=== PATIENT | male | born 1960 | race Caucasian/White ===

== ENCOUNTER 2019-02-28 04:38 | Inpatient (IN) | payer BC ==
[2019-02-28] VITALS (16 sets, daily range): BP systolic 92–173; BP diastolic 60–81
[~2019-02-28] VITALS: Ht 175.3 cm; Wt 115.3 kg
[~2019-02-28 04:38] MED LIST: ASP81TEC PO; CHOL200035 PO; SIMV20TA3 PO; SIMV80TA3 PO
--- OUTSIDE RECORDS SUMMARY | 2019-02-28 04:46 | XMS REPORT | Continuity of Care Document ---
Author Author [facility] Organization [facility] Address Unknown Phone Unavailable Support Name Relationship Address Phone RAUL HDZ Next Of Kin [address] [place], [place] [id number] Insurance Providers Payer Name Policy Number Subscriber Name Relationship Rust [id number] Minerva Gupta 01 Self / Same As Patient Advance Directives Directive Response Recorded Date Advance Directives Y 05/08/13 8:36am Organ Donor N 05/08/13 8:36am Problems No Known Problems or Medical conditions. Allergies, Adverse Reactions, Alerts Allergen Type Severity Reaction Last Updated Erythromycin Base Allergy Mild 05/08/13 GENERAL ANESTHETIC AGENT?? Adverse Reaction Mild 05/08/13 Medications Medication Dose Units Route Sig Qty Days Simvastatin 80 Mg PO DAILY Aspirin (Aspirin Ec 81 Mg) 81 Mg PO DAILY Cholecalciferol (Vitamin D3) (Vitamin D3) 2000 Unit PO DAILY Response Recorded Date/Time Status not known Unknown Results No Known Relevant Diagnostic Tests, Laboratory Data and/or Discharge Summary.
--- OUTSIDE RECORDS SUMMARY | 2019-02-28 04:46 | XMS REPORT | Continuity of Care Document ---
Author Organization Unknown Address Unknown Allergies Active Description Code Type Severity Reaction Onset Reported/Identified Relationship to Patient Clinical Status Yes erythromycin base [id number] Drug Allergy Mild N/A 05/08/2013 Yes GENERAL ANESTHETIC AGENT?? GENERAL ANESTHETIC AGENT?? Mild N/A 05/08/2013 Medications There is no data. Problems Date Dx Coded Attending Type Code Diagnosis Diagnosed By 05/13/2016 MAEVE GUSMAN MD Ot T15.91XA FOREIGN BODY ON EXTERNAL EYE, PART UNSP, 05/13/2016 MAEVE GUSMAN MD Ot Y92.[address] IN SINGLE-FAMILY (PRIVATE) DANDY 05/15/2016 MAEVE GUSMAN MD Ot T15.91XA FOREIGN BODY ON EXTERNAL EYE, PART UNSP, 05/15/2016 MAEVE GUSMAN MD Ot Y92.[address] IN SINGLE-FAMILY (PRIVATE) DANDY 05/15/2016 MAEVE GUSMAN MD Ot Y99.0 CIVILIAN ACTIVITY DONE FOR INCOME OR PAY 05/15/2016 MAEVE GUSMAN MD Ot T15.91XA FOREIGN BODY ON EXTERNAL EYE, PART UNSP, 05/15/2016 MAEVE GUSMAN MD Ot Y92.[address] IN SINGLE-FAMILY (PRIVATE) DANDY Procedures There is no data. Results There is no data. Encounters ACCT No. Visit Date/Time Discharge Status Pt. Type Provider Facility Loc./Unit Complaint [id number] 05/13/2016 13:34:00 05/13/2016 15:14:00 DIS Emergency MAEVE GUSMAN MD [facility] ER R EYE CHEMICAL EXPOSURE [id number] 09/09/2014 19:06:00 09/09/2014 23:59:59 CLS Outpatient COLTHARP TAYLER HALL [facility] QUICK [id number] 05/08/2013 07:52:00 05/08/2013 10:50:00 DIS Outpatient [id number] 05/06/2013 07:36:00 05/06/2013 23:59:59 [facility] Outpatient [email or web address] 09/18/2014 08:28:58 ACT Document Registration
[2019-02-28] MEDS ORDERED: NS IV 1000 ML 1,000 ML IV ONE (04:52)
[2019-02-28] MEDS ORDERED: PIPERACILLIN/TAZOBACTAM (BULK) 4.5 GM in NS (IVPB) 100 ML IV ONE (05:00)
[2019-02-28 05:11] LABS: BASOPHILS % (AUTO) 0 % (0-10); EOSINOPHILS % (AUTO) 0 % (0-10); HEMATOCRIT 44 % (40-54); HEMOGLOBIN 14.8 G/DL (13.3-17.7); LYMPHOCYTES # (AUTO) 0.9 X 10^3 (1.0-4.0); LYMPHOCYTES % (AUTO) 5 % (12-44); MEAN CORPUSCULAR HEMOGLOBIN 31 PG (25-34); MEAN CORPUSCULAR HGB CONC 34 G/DL (32-36); MEAN CORPUSCULAR VOLUME 91 FL (80-99); MONOCYTES # (AUTO) 0.6 X 10^3 (0.0-1.0); MONOCYTES % (AUTO) 3 % (0-12); NEUTROPHILS # (AUTO) 16.8 X 10^3 (1.8-7.8); NEUTROPHILS % (AUTO) 91 % (42-75); PLATELET COUNT 213 10^3/uL (130-400); RED CELL DISTRIBUTION WIDTH 13.2 % (10.0-14.5); WHITE BLOOD COUNT 18.4 10^3/uL (4.3-11.0)
[2019-02-28 05:13] LABS: BILIRUBIN,URINE NEGATIVE (NEGATIVE); CLARITY,URINE SLIGHTLY CLOUDY; COLOR,URINE YELLOW; GLUCOSE, URINE (UA) NEGATIVE (NEGATIVE); KETONES,URINE 1+ (NEGATIVE); LEUKOCYTE ESTERASE ,URINE 3+ (NEGATIVE); NITRITE,URINE NEGATIVE (NEGATIVE); PH,URINE 6 (5-9); PROTEIN,URINE 3+ (NEGATIVE); UROBILINOGEN,URINE 4 MG/DL (NORMAL)
[2019-02-28] MEDS ORDERED: PIPERACILLIN SODIUM/TAZOBACTAM 4.5 GM in NS (IVPB) 100 ML IV ONE (05:15)
[2019-02-28 05:22] LABS: BACTERIA,URINE MODERATE /HPF; WBC,URINE TNTC /HPF
[2019-02-28 05:24] LABS: PROTHROMBIN TIME PATIENT 13.5 SEC (12.2-14.7)
[2019-02-28 05:30] LABS: ALANINE AMINOTRANSFERASE 21 U/L (0-55); ALBUMIN 3.9 GM/DL (3.2-4.5); ALKALINE PHOSPHATASE 77 U/L (40-136); BILIRUBIN,TOTAL 2.2 MG/DL (0.1-1.0); BUN/CREATININE RATIO 10; CALCIUM 9.6 MG/DL (8.5-10.1); CARBON DIOXIDE 20 MMOL/L (21-32); CHLORIDE 106 MMOL/L (98-107); CREATININE SERUM 0.98 MG/DL (0.60-1.30); GFR ESTIMATED > 60; GLUCOSE 116 MG/DL (70-105); POTASSIUM 3.8 MMOL/L (3.6-5.0); SODIUM 137 MMOL/L (135-145); TOTAL PROTEIN 6.6 GM/DL (6.4-8.2)
[2019-02-28] MEDS ORDERED: LACTATED RINGERS 1,000 ML IV ONE ×2 (05:59→06:37)
[2019-02-28 06:11] LABS: LYMPHOCYTES % (MANUAL) 6 %; MONOCYTES % (MANUAL) 5 %; NEUTROPHILS % (MANUAL) 89 %
--- NOTE | 2019-02-28 06:23 | Diagnostic Imaging Report ---
INDICATION: Fever and chills. No prior examinations are available for comparison. FINDINGS: The heart size, mediastinal configuration, and pulmonary vascularity are within normal limits. There is no pleural effusion, pneumothorax, or pneumonia. The osseous structures are unremarkable. IMPRESSION: No acute cardiopulmonary abnormality. Dictated by: Dictated on workstation # [id number]
[2019-02-28] MEDS ORDERED: ACETAMINOPHEN 500 MG TAB (TYLENOL) PO ONE (06:45)
--- NOTE | 2019-02-28 06:47 | ED General ---
General Chief Complaint: - Urinary Stated Complaint: POSS UTI Nursing Triage Note: FEVER/CHILLS, UNABLE TO EMPTY BLADDER Nursing Sepsis Screen: Possible Sepsis Risk Source of Information: Patient Exam Limitations: No Limitations History of Present Illness Date Seen by Provider: Feb 28, 2019 Time Seen by Provider: 04:41 Initial Comments This 59-year-old gentleman presents to the emergency room with illness starting on February 26 at around 22:00 when he developed chills. He was also noticing urinary frequency with a low volume voids. He questioned retention. He reports having had some difficulty urinating for about one to 2 weeks. He has been very busy at work and has not been getting up to urinate as often as he should. He is not presently treated for any prostate problems. He took ibuprofen at 23:00 and at 04:00. He presents febrile, tachycardic, and with systolic blood pressure of 89. Allergies and Home Medications Allergies Coded Allergies: erythromycin base (Unverified Allergy, Mild, 05/08/13) Uncoded Allergies: GENERAL ANESTHETIC AGENT?? (Adverse Reaction, Mild, 05/08/13) PT REPORTS WAS TOLD HE HAD A REACTION A CHILD DURING A T&A. NOT KNOWN WHAT REACTION WAS FROM. WAS TOLD IT WAS A GENERAL ANESTHETIC. Home Medications Aspirin 81 Mg Tabec, 81 MG PO DAILY, (Reported) Cholecalciferol (Vitamin D3) 2,000 Unit Capsule, 2,000 UNIT PO DAILY, (Reported) Simvastatin 80 Mg Tablet, 80 MG PO DAILY, (Reported) Patient Home Medication List Home Medication List Reviewed: Yes Review of Systems Review of Systems Constitutional: see HPI EENTM: no symptoms reported Cardiovascular: see HPI Gastrointestinal: no symptoms reported Genitourinary: see HPI Musculoskeletal: no symptoms reported Skin: no symptoms reported Psychiatric/Neurological: No Symptoms Reported Hematologic/Lymphatic: No Symptoms Reported Immunological/Allergic: no symptoms reported Past [id number] Hx Past Med/Social Hx: Reviewed and Corrections made Patient Social History Alcohol Use: Rarely Uses Recreational Drug Use: No Smoking Status: Never a Smoker 2nd Hand Smoke Exposure: No Recent Foreign Travel: No Contact w/Someone Who Travel: No Recent Infectious Disease Expo: No Recent Hopitalizations: No Physical Abuse: No Sexual Abuse: No Mistreated: No Fear: No Immunizations Up To Date Tetanus Booster (TDap): Unknown Seasonal Allergies Seasonal Allergies: Yes Past Medical History Surgeries: Yes Adenoidectomy, Orthopedic, Tonsillectomy Respiratory: No Cardiac: Yes High Cholesterol Neurological: No Reproductive Disorders: No Sexually Transmitted Disease: No HIV/AIDS: No Genitourinary: No Gastrointestinal: Yes Gastroesophageal Reflux Musculoskeletal: No Endocrine: No Loss of Vision: Denies Hearing Impairment: Denies Cancer: No Psychosocial: No Integumentary: No Blood Disorders: No Physical Exam-Suspected Sepsis Physical Exam Vital Signs Vital Signs - First Documented 02/28/19 02/28/19 04:46 05:29 Temp 102.7 Pulse 140 Resp 18 B/P (MAP) 89/64 (72) Pulse Ox 94 O2 Delivery Room Air O2 Flow Rate 2.00 Capillary Refill : Less Than 3 Seconds Blood Pressure Mean: 78 Height, Weight, BMI Height: 5'9.00" Weight: 245lbs. oz. 111.878430it; BMI Method:Stated General Appearance: No Apparent Distress, WD/WN HEENT: PERRL/EOMI, Normal ENT Inspection Neck: Normal Inspection, Supple Respiratory: Lungs Clear, Normal Breath Sounds, No Accessory Muscle Use, No Respiratory Distress Cardiovascular: No Edema, No Gallop, Tachycardia Gastrointestinal: Normal Bowel Sounds, Non Tender, Soft Extremity: Normal Capillary Refill, Normal Inspection, No Pedal Edema Neurologic/Psychiatric: Alert, Oriented x3, No Motor/Sensory Deficits, Normal Mood/Affect, head shipper II-XII Norm as Tested Skin: normal color, warm/dry Focused Exam Sepsis Stage: Sepsis Possible Source: Genitouriary Lactate Level 02/28/19 04:55: Lactic Acid Level 1.77 Time of Focused Exam: 06:40 Respiratory: Lungs Clear, Normal Breath Sounds, No Accessory Muscle Use Cardiovascular: Regular Rate, Rhythm, No Edema, No Murmur Capillary Refill: Less Than 3 Seconds Skin: normal color, warm/dry Lactic Acid Level Laboratory Tests Test 02/28/19 04:55 Lactic Acid Level 1.77 MMOL/L (0.50-2.00) Within 3hrs of presentation: Admin fluids, Admin 30ml/kg IBW due to BMI>30, Admin ABX, Blood cultures prior to ABX's, Focus exam, Lactate level Progress/Results/Core Measures Suspected Sepsis Recent Fever Within 48 Hours: Yes Infection Criteria Present: Suspected New Infection New/Unexplained Altered Menta: No Sepsis Screen: Possible Sepsis Risk SIRS Temperature:100.7 Pulse: 107 Respiratory Rate: 16 Laboratory Tests 02/28/19 04:55: White Blood Count 18.4H Blood Pressure 103 /66 Mean: 78 02/28/19 04:55: Lactic Acid Level 1.77 Laboratory Tests 02/28/19 04:55: Creatinine 0.98, INR Comment 1.0, Platelet Count 213, Total Bilirubin 2.2H Results/Orders Lab Results Laboratory Tests Test 02/28/19 04:55 Range/Units White Blood Count 18.4 H 4.3-11.0 10^3/uL Red Blood Count 4.82 4.35-5.85 10^6/uL Hemoglobin 14.8 13.3-17.7 G/DL Hematocrit 44 40-54 % Mean Corpuscular Volume 91 80-99 FL Mean Corpuscular Hemoglobin 31 25-34 PG Mean Corpuscular Hemoglobin Concent 34 32-36 G/DL Red Cell Distribution Width 13.2 10.0-14.5 % Platelet Count 213 130-400 10^3/uL Mean Platelet Volume 11.0 H 7.4-10.4 FL Neutrophils (%) (Auto) 91 H 42-75 % Lymphocytes (%) (Auto) 5 L 12-44 % Monocytes (%) (Auto) 3 0-12 % Eosinophils (%) (Auto) 0 0-10 % Basophils (%) (Auto) 0 0-10 % Neutrophils # (Auto) 16.8 H 1.8-7.8 X 10^3 Lymphocytes # (Auto) 0.9 L 1.0-4.0 X 10^3 Monocytes # (Auto) 0.6 0.0-1.0 X 10^3 Eosinophils # (Auto) 0.0 0.0-0.3 10^3/uL Basophils # (Auto) 0.0 0.0-0.1 10^3/uL Neutrophils % (Manual) 89 % Lymphocytes % (Manual) 6 % Monocytes % (Manual) 5 % Prothrombin Time 13.5 12.2-14.7 SEC INR Comment 1.0 0.8-1.4 Activated Partial Thromboplast Time 31 24-35 SEC Urine Color YELLOW Urine Clarity SLIGHTLY CLOUDY Urine pH 6 5-9 Urine Specific Varnell 1.020 1.016-1.022 Urine Protein 3+ H NEGATIVE Urine Glucose (UA) NEGATIVE NEGATIVE Urine Ketones 1+ H NEGATIVE Urine Nitrite NEGATIVE NEGATIVE Urine Bilirubin NEGATIVE NEGATIVE Urine Urobilinogen 4 H NORMAL MG/DL Urine Leukocyte Esterase 3+ H NEGATIVE Urine RBC (Auto) 5+ H NEGATIVE Urine RBC 5-10 H /HPF Urine WBC TNTC H /HPF Urine Crystals NONE /LPF Urine Bacteria MODERATE H /HPF Urine Casts NONE /LPF Urine Mucus NEGATIVE /LPF Urine Culture Indicated CULTURE PENDING Sodium Level 137 135-145 MMOL/L Potassium Level 3.8 3.6-5.0 MMOL/L Chloride Level 106 98-107 MMOL/L Carbon Dioxide Level 20 L 21-32 MMOL/L Anion Gap 11 5-14 MMOL/L Blood Urea Nitrogen 10 7-18 MG/DL Creatinine 0.98 0.60-1.30 MG/DL Estimat Glomerular Filtration Rate > 60 BUN/Creatinine Ratio 10 Glucose Level 116 H 70-105 MG/DL Lactic Acid Level 1.77 0.50-2.00 MMOL/L Calcium Level 9.6 8.5-10.1 MG/DL Corrected Calcium 9.7 8.5-10.1 MG/DL Total Bilirubin 2.2 H 0.1-1.0 MG/DL Aspartate Amino Transf (AST/SGOT) 16 5-34 U/L Alanine Aminotransferase (ALT/SGPT) 21 0-55 U/L Alkaline Phosphatase 77 40-136 U/L Total Protein 6.6 6.4-8.2 GM/DL Albumin 3.9 3.2-4.5 GM/DL My Orders Orders - GLORIA LOZANO MD Cbc With Automated Diff (02/28/19 04:52) Comprehensive Metabolic Panel (02/28/19 04:52) Blood Culture (02/28/19 04:52) Sputum Culture (02/28/19 04:52) Urinalysis (02/28/19 04:52) Urine Culture (02/28/19 04:52) Protime With Inr (02/28/19 04:52) Partial Thromboplastin Time (02/28/19 04:52) Chest 1 View, Ap/Pa Only (02/28/19 04:52) Ed Iv/Invasive Line Start (02/28/19 04:52) Ed Iv/Invasive Line Start (02/28/19 04:52) Vital Signs Adult Sepsis Patie Q15M (02/28/19 04:52) O2 (02/28/19 04:52) Remove Rings In Anticipation O (02/28/19 04:52) Lactic Acid Analyzer (02/28/19 04:52) Ns Iv 1000 Ml (Sodium Chloride 0.9%) (02/28/19 04:52) Piperacillin/Tazobactam (Bulk) (Zosyn In (02/28/19 05:00) Piperacillin Sodium/Tazobactam (Zosyn Vi (02/28/19 05:15) Manual Differential (02/28/19 04:55) Bladder Scan (02/28/19 05:22) Lactated Ringers (Lr 1000 Ml Iv Solution (02/28/19 05:59) Acetaminophen Tablet (Tylenol Tablet) (02/28/19 06:45) Lactated Ringers (Lr 1000 Ml Iv Solution (02/28/19 06:37) Medications Given in ED Current Medications Medications Dose Ordered Sig/Nguyen Route Start Time Stop Time Status Last Admin Dose Admin Acetaminophen 1,000 mg ONCE ONCE PO 02/28/19 06:45 02/28/19 06:46 DC 02/28/19 06:45 1,000 MG Lactated Ringer's 1,000 ml @ 0 mls/hr Q0M ONCE IV 02/28/19 05:59 02/28/19 06:00 DC 02/28/19 06:05 0 MLS/HR Lactated Ringer's 1,000 ml @ 0 mls/hr Q0M ONCE IV 02/28/19 06:37 02/28/19 06:38 DC 02/28/19 06:45 0 MLS/HR Piperacillin Sod/ Tazobactam Sod 4.5 gm/Sodium Chloride 100 ml @ 200 mls/hr ONCE ONCE IV 02/28/19 05:15 02/28/19 05:44 DC 02/28/19 05:14 200 MLS/HR Sodium Chloride 1,000 ml @ 0 mls/hr Q0M ONCE IV 02/28/19 04:52 02/28/19 04:54 DC 02/28/19 05:14 0 MLS/HR Vital Signs/I&O 02/28/19 02/28/19 02/28/19 02/28/19 04:46 05:29 05:57 06:45 Temp 102.7 100.7 100.7 Pulse 140 107 Resp 18 16 B/P (MAP) 89/64 (72) 103/66 Pulse Ox 94 96 O2 Delivery Room Air Nasal Cannula Nasal Cannula O2 Flow Rate 2.00 2.00 Capillary Refill : Less Than 3 Seconds Blood Pressure Mean: 78 Progress Note : Progress Note Septic workup was pursued. Patient received 3 L of IV fluid. This exceeds the 30 ML per kilogram of ideal body weight that would be necessary if this patient developed severe sepsis or septic shock. Because he had borderline blood pressures, the severe sepsis protocol was used. Zosyn was given as the initial antibiotic. Case was discussed with Dr. Shepard. Tylenol was given for fever. Bladder scan was performed due to patient's feelings of retention. Only about 15 mL of post void urine remained in the bladder. Departure Communication (Admissions) Time/Spoke to Admitting Phy: 06:20 Dr. Shepard Impression Primary Impression: Sepsis Qualified Codes: A41.9 - Sepsis, unspecified organism Additional Impression: Urinary tract infection Qualified Codes: N39.0 - Urinary tract infection, site not specified Disposition: ADMITTED INPATIENT Condition: Improved Admissions Decision to Admit Reason: Admit from ER (General) Decision to Admit/Date: Feb 28, 2019 Time/Decision to Admit Time: 04:45 Departure-Patient Inst. Referrals: XIMENA CHRIS MD (PCP/Family) Primary Care Physician GLORIA LOZANO MD Feb 28, 2019 06:47
--- OUTSIDE RECORDS SUMMARY | 2019-02-28 07:22 | XMS REPORT | Continuity of Care Document ---
Author Organization Unknown Address Unknown Allergies Active Description Code Type Severity Reaction Onset Reported/Identified Relationship to Patient Clinical Status Yes erythromycin base [id number] Drug Allergy Mild N/A 05/08/2013 Yes GENERAL [...] DANDY Procedures There is no data. Results Test Result Range Complete blood count (CBC) with automated white blood cell (WBC) differential - 02/28/19 04:55 Blood leukocytes automated count (number/volume) 18.4 10*3/uL 4.3-11.0 Blood erythrocytes automated count (number/volume) 4.82 10*6/uL 4.35-5.85 Venous blood hemoglobin measurement (mass/volume) 14.8 g/dL 13.3-17.7 Blood hematocrit (volume fraction) 44 % 40-54 Automated erythrocyte mean corpuscular volume 91 [foz_us] 80-99 Automated erythrocyte mean corpuscular hemoglobin (mass per erythrocyte) 31 pg 25-34 Automated erythrocyte mean corpuscular hemoglobin concentration measurement (mass/volume) 34 g/dL 32-36 Automated erythrocyte distribution width ratio 13.2 % 10.0- 14.5 Automated blood platelet count (count/volume) 213 10*3/uL 130-400 Automated blood platelet mean volume measurement 11.0 [foz_us] 7.4-10.4 Automated blood neutrophils/100 leukocytes 91 % 42-75 Automated blood lymphocytes/100 leukocytes 5 % 12-44 Blood monocytes/100 leukocytes 3 % 0-12 Automated blood eosinophils/100 leukocytes 0 % 0-10 Automated blood basophils/100 leukocytes 0 % 0-10 Blood neutrophils automated count (number/volume) 16.8 10*3 1.8-7.8 Blood lymphocytes automated count (number/volume) 0.9 10*3 1.0-4.0 Blood monocytes automated count (number/volume) 0.6 10*3 0.0- 1.0 Automated eosinophil count 0.0 10*3/uL 0.0-0.3 Automated blood basophil count (count/volume) 0.0 10*3/uL 0.0-0.1 Complete urinalysis with reflex to culture - 02/28/19 04:55 Urine color determination YELLOW NRG Urine clarity determination SLIGHTLY CLOUDY NRG Urine pH measurement by test strip 6 5-9 Specific gravity of urine by test strip 1.020 1.016-1.022 Urine protein assay by test strip, semi-quantitative 3+ NEGATIVE Urine glucose detection by automated test strip NEGATIVE NEGATIVE Erythrocytes detection in urine sediment by light microscopy 5+ NEGATIVE Urine ketones detection by automated test strip 1+ NEGATIVE Urine nitrite detection by test strip NEGATIVE NEGATIVE Urine total bilirubin detection by test strip NEGATIVE NEGATIVE Urine urobilinogen measurement by automated test strip (mass/volume) 4 mg/dL NORMAL Urine leukocyte esterase detection by dipstick 3+ NEGATIVE Automated urine sediment erythrocyte count by microscopy (number/high power field) [HPF] NRG Automated urine sediment leukocyte count by microscopy (number/high power field) TNTC NRG Bacteria detection in urine sediment by light microscopy MODERATE NRG Crystals detection in urine sediment by light microscopy NONE NRG Casts detection in urine sediment by light microscopy NONE NRG Mucus detection in urine sediment by light microscopy NEGATIVE NRG Complete urinalysis with reflex to culture CULTURE PENDING NRG Blood lactic acid measurement (moles/volume) - 02/28/19 04:55 Blood lactic acid measurement (moles/volume) 1.77 mmol/L 0.50- 2.00 Comprehensive metabolic panel - 02/28/19 04:55 Serum or plasma sodium measurement (moles/volume) 137 mmol/L 135-145 Serum or plasma potassium measurement (moles/volume) 3.8 mmol/L 3.6-5.0 Serum or plasma chloride measurement (moles/volume) 106 mmol/L 98-107 Carbon dioxide 20 mmol/L 21-32 Serum or plasma anion gap determination (moles/volume) 11 mmol/L 5-14 Serum or plasma urea nitrogen measurement (mass/volume) 10 mg/dL 7-18 Serum or plasma creatinine measurement (mass/volume) 0.98 mg/dL 0.60-1.30 Serum or plasma urea nitrogen/creatinine mass ratio 10 NRG Serum or plasma creatinine measurement with calculation of estimated glomerular filtration rate > NRG Serum or plasma glucose measurement (mass/volume) 116 mg/dL 70-105 Serum or plasma calcium measurement (mass/volume) 9.6 mg/dL 8.5-10.1 Serum or plasma total bilirubin measurement (mass/volume) 2.2 mg/dL 0.1-1.0 Serum or plasma alkaline phosphatase measurement (enzymatic activity/volume) 77 U/L 40-136 Serum or plasma aspartate aminotransferase measurement (enzymatic activity/volume) 16 U/L 5-34 Serum or plasma alanine aminotransferase measurement (enzymatic activity/volume) 21 U/L 0-55 Serum or plasma protein measurement (mass/volume) 6.6 g/dL 6.4-8.2 Serum or plasma albumin measurement (mass/volume) 3.9 g/dL 3.2-4.5 CALCIUM CORRECTED 9.7 mg/dL 8.5-10.1 PT panel in platelet poor plasma by coagulation assay - 02/28/19 04:55 Prothrombin time (PT) in platelet poor plasma by coagulation assay 13.5 s 12.2-14.7 INR in platelet poor plasma or blood by coagulation assay 1.0 0.8-1.4 Activated partial thromboplastin time (aPTT) in platelet poor plasma bycoagulation assay - 02/28/19 04:55 Activated partial thromboplastin time (aPTT) in platelet poor plasma bycoagulation assay 31 s 24-35 Manual absolute plasma cell count - 02/28/19 04:55 Blood monocytes/100 leukocytes 5 % NRG Manual blood segmented neutrophils/100 leukocytes 89 % NRG Manual blood lymphocytes/100 leukocytes 6 % NRG Encounters ACCT No. Visit Date/Time Discharge Status Pt. Type Provider Facility Loc./Unit Complaint [id number] 05/13/2016 13:34:00 05/13/2016 15:14:00 DIS Emergency MAEVE GUSMAN MD [facility] ER R EYE CHEMICAL EXPOSURE [id number] 09/09/2014 19:06:00 09/09/2014 23:59:59 CLS Outpatient TAYLER FOSTER DO [facility] QUICK [id number] 05/08/2013 07:52:00 05/08/2013 10:50:00 DIS Outpatient [id number] 05/06/2013 07:36:00 05/06/2013 23:59:59 CLS Outpatient [id number] 02/28/2019 05:15:00 Document Registration [id number] 09/18/2014 08:28:58 ACT Document Registration
--- NOTE | 2019-02-28 07:38 | NUR ---
Report given to Nery DISTRICT ASSOCIATE JUDGE at this time. Reports she will call down when she is ready for pt to come upstairs.
--- NOTE | 2019-02-28 07:40 | NUR ---
Pt reports he feels like he is having hot sweats at this time. Pt current BP 96/68. Pt HR 90, and O2 sat 97% on RA. Pt given cool wash rag for his forehead.
[2019-02-28] MEDS ORDERED: EPINEPHrine 1 MG INJECTION 2 MG in NS (IVPB) 250 ML IV SCH (08:30)
[2019-02-28] MEDS ORDERED: LACTATED RINGERS IV PRN (08:30)
--- NOTE | 2019-02-28 08:37 | History & Physical-Hospitalist ---
History of Present Illness HPI/Chief Complaint patient is a 59-year-old male with a past medical history of hyperlipidemia who presented to the emergency department due to cold chills and urinary frequency He reports the symptoms started on February 26 around 1030 p.m. he had been working long hoe past 34 weeks and has not been keeping up with fluids. He began it began to feel fatigued on Saturday as well with his urinary symptoms and developed mid back pain on both sides. This morning he developed severe chills around 345 a.m. causing him to seek evaluation in the emergency department he was found to be significantly tachycardic to the 140s, febrile, and hypotensive and a UTI was noted on urinalysis. He was admitted toe ICU for severe sepsis likely from pyelonephritis. Source: patient Exam Limitations: no limitations Date Seen 02/28/19 Time Seen by a Provider: 08:32 Attending Physician Sabina Olmedo MD PCP Elias Samson MD Referring Physician Date of Admission Feb 28, 2019 at 06:20 Home Medications & Allergies Home Medications Reviewed patient Home Medication Reconciliation performed by pharmacy medication reconciliations industrial controls technician and/or nursing. Patients Allergies have been reviewed. Allergies Allergies Coded Allergies erythromycin base (Unverified Allergy, Mild, 05/08/13) Uncoded Allergies GENERAL ANESTHETIC AGENT?? ( Adverse Reaction, Mild, 05/08/13) PT REPORTS WAS TOLD HE HAD A REACTION A CHILD DURING A T&A. NOT KNOWN WHAT REACTION WAS FROM. WAS TOLD IT WAS A GENERAL ANESTHETIC. Past Zlqkvpb-Ysocle-Anupjj Hx Past Med/Social Hx: Reviewed and Corrections made Patient Social History Marrital Status: Employed/Student: employed Alcohol Use: Rarely Uses Recreational Drug Use: No Smoking Status: Never a Smoker 2nd Hand Smoke Exposure: No Recent Foreign Travel: No Contact w/other who traveled: No Recent Hopitalizations: No Recent Infectious Disease Expo: No Immunizations Up To Date Tetanus Booster (TDap): Unknown Seasonal Allergies Seasonal Allergies: Yes Past Medical History Surgeries: Adenoidectomy, Orthopedic (ACL), Tonsillectomy Cardiac: High Cholesterol, Hypotension Reproductive: No Sexually Transmitted Disease: No HIV/AIDS: No Gastrointestinal: Gastroesophageal Reflux Loss of Vision: Denies Hearing Impairment: Denies History of Blood Disorders: No Family History Reviewed Nursing Family Hx Heart Disease (Dad) Review of Systems Constitutional: chills, fever, malaise EENTM: no symptoms reported Respiratory: No cough, No dyspnea on exertion, No phlegm, No short of breath Cardiovascular: No chest pain, No Hx of Intervention, No palpitations Gastrointestinal: No abdominal pain, No constipation, No diarrhea, No nausea, No vomiting Genitourinary: decreased output; No discharge; dysuria, frequency; No hematuria; hesitancy; No incontinence Musculoskeletal: back pain; No joint pain, No muscle weakness Skin: no symptoms reported Psychiatric/Neurological: No Symptoms Reported Physical Exam Physical Exam Vital Signs Vital Signs - First Documented 02/28/19 02/28/19 04:46 05:29 Temp 102.7 Pulse 140 Resp 18 B/P (MAP) 89/64 (72) Pulse Ox 94 O2 Delivery Room Air O2 Flow Rate 2.00 Capillary Refill : Less Than 3 Seconds Height, Weight, BMI Height: 5'9.00" Weight: 250lbs. 8.0oz. [id number]; 37.0 BMI Method:Stated General Appearance: No Apparent Distress, WD/WN, Obese HEENT: Normal ENT Inspection, Moist Mucous Membranes; No Scleral Icterus (L), No Scleral Icterus (R) Neck: Full Range of Motion, Supple; No Thyromegaly Respiratory: Lungs Clear, No Accessory Muscle Use, No Respiratory Distress Cardiovascular: Regular Rate, Rhythm, No JVD, No Murmur, Normal Peripheral Pulses Gastrointestinal: Normal Bowel Sounds, Non Tender, Soft; No Distended, No Guarding Extremity: Normal Inspection, No Calf Tenderness, No Pedal Edema Neurologic/Psychiatric: Alert, Oriented x3, Normal Mood/Affect; No Aphasia, No Facial Droop Skin: Normal Color, Warm/Dry Results Results/Procedures Labs Laboratory Tests 02/28/19 04:55 02/28/19 09:25 03/01/19 02:58 Patient resulted labs reviewed. Imaging: Reviewed Imaging Report Assessment/Plan Admission Diagnosis Severe Sepsis Admission Status: Inpatient Order (span 2 midnights) Reason for Inpatient Admission: IV abx, await cultures Assessment and Plan Assessment Severe sepsis UTI and likely pyelonephritis Plan Continue antbiotics as started in the emergency department Received 30cc/kg bolus due to hypotension Await cultures Does meet severe sepsis criteria though in talking to the patient has baseline hypotension with average BPs being 100s/60s will monitor and ICU and likely transfer to the floor tomorrow Diagnosis/Problems Diagnosis/Problems (1) Severe sepsis Status: Acute (2) Urinary tract infection Status: Acute Qualifiers: Urinary tract infection type: site unspecified Hematuria presence: with hematuria Qualified Codes: N39.0 - Urinary tract infection, site not specified; R31.9 - Hematuria, unspecified (3) Hyperlipidemia Status: Chronic Qualifiers: Hyperlipidemia type: unspecified Qualified Codes: E78.5 - Hyperlipidemia, unspecified Clinical Quality Measures DVT/VTE Risk/Contraindication: Risk Factor Score Per Nursin RFS Level Per Nursing on Admit: 4+=Very High SABINA OLMEDO MD Feb 28, 2019 08:36
[2019-02-28] MEDS ORDERED: ACETAMINOPHEN 500 MG TAB (TYLENOL) PO PRN (08:45)
[2019-02-28] MEDS ORDERED: ONDANSETRON 4 MG/2 ML (SDV) Z0FRAN IV PRN (08:45)
[2019-02-28] MEDS: VASOPRESSIN INJECTION 20 UNIT in NS (IVPB) 100 ML IV SCH ×2 (09:35→17:11)
[2019-02-28] MEDS: NOREPINEPHRINE 4 MG in NS (IVPB) 250 ML IV SCH ×3 (09:35→21:08)
[2019-02-28] MEDS: LACTATED RINGERS 1,000 ML IV SCH ×3 (09:39→17:57)
[2019-02-28] MEDS: cefTRIAXone 1,000 MG/SWFI 10 ML IV PUSH IV SCH ×2 (09:45)
[2019-02-28 09:51] LABS: CHLORIDE 107 MMOL/L (98-107); POTASSIUM 4.3 MMOL/L (3.6-5.0); SODIUM 140 MMOL/L (135-145)
[2019-02-28 09:52] LABS: ALANINE AMINOTRANSFERASE 16 U/L (0-55); ALBUMIN 3.3 GM/DL (3.2-4.5); ALKALINE PHOSPHATASE 69 U/L (40-136); BILIRUBIN,TOTAL 2.2 MG/DL (0.1-1.0); BUN/CREATININE RATIO 9; CALCIUM 8.8 MG/DL (8.5-10.1); CARBON DIOXIDE 24 MMOL/L (21-32); CREATININE SERUM 1.08 MG/DL (0.60-1.30); GFR ESTIMATED > 60; GLUCOSE 111 MG/DL (70-105); TOTAL PROTEIN 5.5 GM/DL (6.4-8.2)
[2019-02-28] MEDS ORDERED: PATIENT MAY USE OWN MEDS, ALL MC SCH (16:30)
[2019-02-28] MEDS: IBUPROFEN 600 MG (MOTRIN) TAB PO PRN (17:57)
[2019-02-28] MEDS ORDERED: NON-FORMULARY MEDICATION 1 EA EA (Simvastatin 80 MG) PO SCH (21:00)
[2019-02-28] MEDS ORDERED: SIMvastatin 40 MG (ZOCOR) TAB PO SCH (21:00)
[2019-03-01] VITALS (12 sets, daily range): BP systolic 82–132; BP diastolic 61–80
[2019-03-01] MEDS: LACTATED RINGERS 1,000 ML IV SCH ×2 (00:20→08:43)
[2019-03-01] MEDS: VASOPRESSIN INJECTION 20 UNIT in NS (IVPB) 100 ML IV SCH (01:16)
[2019-03-01 03:21] LABS: BASOPHILS % (AUTO) 0 % (0-10); EOSINOPHILS # (AUTO) 0.1 10^3/uL (0.0-0.3); EOSINOPHILS % (AUTO) 1 % (0-10); HEMATOCRIT 40 % (40-54); HEMOGLOBIN 13.4 G/DL (13.3-17.7); LYMPHOCYTES # (AUTO) 1.3 X 10^3 (1.0-4.0); LYMPHOCYTES % (AUTO) 10 % (12-44); MEAN CORPUSCULAR HEMOGLOBIN 31 PG (25-34); MEAN CORPUSCULAR HGB CONC 33 G/DL (32-36); MEAN CORPUSCULAR VOLUME 92 FL (80-99); MEAN PLATELET VOLUME 11.4 FL (7.4-10.4); MONOCYTES % (AUTO) 8 % (0-12); NEUTROPHILS # (AUTO) 10.3 X 10^3 (1.8-7.8); NEUTROPHILS % (AUTO) 81 % (42-75); PLATELET COUNT 161 10^3/uL (130-400); RED CELL DISTRIBUTION WIDTH 13.2 % (10.0-14.5); WHITE BLOOD COUNT 12.7 10^3/uL (4.3-11.0)
[2019-03-01 03:38] LABS: BUN/CREATININE RATIO 10; CALCIUM 9.1 MG/DL (8.5-10.1); CARBON DIOXIDE 23 MMOL/L (21-32); CHLORIDE 110 MMOL/L (98-107); CREATININE SERUM 0.91 MG/DL (0.60-1.30); GFR ESTIMATED > 60; GLUCOSE 102 MG/DL (70-105); MAGNESIUM 1.6 MG/DL (1.8-2.4); PHOSPHORUS 3.4 MG/DL (2.3-4.7); POTASSIUM 4.3 MMOL/L (3.6-5.0); SODIUM 141 MMOL/L (135-145)
[2019-03-01] MEDS: NOREPINEPHRINE 4 MG in NS (IVPB) 250 ML IV SCH ×2 (03:44→08:43)
[2019-03-01] MEDS: MAGNESIUM 1 GM/100 ML IVPB 100 ML IV SCH ×2 (04:15→05:53)
[2019-03-01] MEDS ORDERED: MAGNESIUM 1 GM/100 ML IVPB 200 ML IV ONE (04:17)
[2019-03-01] MEDS ORDERED: KCL 20 MEQ TAB (K-DUR) PO SCH (06:00)
[2019-03-01] MEDS ORDERED: MAGNESIUM 1 GM/100 ML IVPB 100 ML IV SCH (06:00)
[2019-03-01] MEDS ORDERED: POTASSIUM CL 10MEQ/50ML IVPB 50 ML IV SCH (06:00)
--- NOTE | 2019-03-01 06:48 | Diagnostic Imaging Report ---
EXAMINATION: Portable erect AP chest at 3:13 AM INDICATION: Sepsis The heart size is within normal limits and stable when compared to 02/28/2019. The lungs remain clear. There is still no sign of failure, pneumonia or a pleural effusion. The mediastinum is not widened. The osseous structures are intact. External cardiac monitoring electrodes are again noted. IMPRESSION: Stable chest. There has been no adverse change since the prior exam. Dictated by: Dictated on workstation # [id number]
--- NOTE | 2019-03-01 08:51 | Progress Note - Hospitalist ---
Subjective HPI/CC On Admission Date Seen by Provider: Mar 01, 2019 Time Seen by Provider: 08:47 patient is a 59-year-old male with a past medical history of hyperlipidemia who presented to the emergency department due to cold chills and urinary frequency He reports the symptoms started on February 26 around 1030 p.m. he had been working long hoe past 34 weeks and has not been keeping up with fluids. He began it began to feel fatigued on Saturday as well with his urinary symptoms and developed mid back pain on both sides. This morning he developed severe chills around 345 a.m. causing him to seek evaluation in the emergency department he was found to be significantly tachycardic to the 140s, febrile, and hypotensive and a UTI was noted on urinalysis. He was admitted toe ICU for severe sepsis likely from pyelonephritis. Subjective/Events-last exam Pt reports feeling well. BP improved. No new complaints. Focused Exam Lactate Level 02/28/19 04:55: Lactic Acid Level 1.77 02/28/19 09:25: Lactic Acid Level 1.04 Time of Focused Exam: 06:40 Objective Exam Vital Signs Vital Signs Date Time Temp Pulse Resp B/P (MAP) Pulse Ox O2 Delivery O2 Flow Rate FiO2 03/01/19 08:00 108/78 (88) Room Air 03/01/19 07:55 98.3 03/01/19 07:53 97 03/01/19 06:00 77 02/28/19 18:00 37 02/28/19 08:17 2.00 Capillary Refill : Less Than 3 Seconds General Appearance: No Apparent Distress, WD/WN, Obese Respiratory: Lungs Clear, No Accessory Muscle Use, No Respiratory Distress Cardiovascular: Regular Rate, Rhythm, No Murmur Gastrointestinal: Normal Bowel Sounds, Non Tender, Soft Extremity: No Calf Tenderness Neurologic/Psychiatric: Alert, Oriented x3, Normal Mood/Affect Results/Procedures Lab Laboratory Tests 02/28/19 09:25 03/01/19 02:58 Patient resulted labs reviewed. Imaging: Reviewed Imaging Report Assessment/Plan Assessment and Plan Assess & Plan/Chief Complaint Assessment Severe sepsis- improving UTI and likely pyelonephritis Plan Continue antibiotics- await c/s Await cultures transfer to the floor probiotic likely DC home tomorrow when culture and sensitivities available Diagnosis/Problems Diagnosis/Problems (1) Severe sepsis Status: Acute (2) Urinary tract infection Status: Acute Qualifiers: Urinary tract infection type: site unspecified Hematuria presence: with hematuria Qualified Codes: N39.0 - Urinary tract infection, site not specified; R31.9 - Hematuria, unspecified (3) Hyperlipidemia Status: Chronic Qualifiers: Hyperlipidemia type: unspecified Qualified Codes: E78.5 - Hyperlipidemia, unspecified Clinical Quality Measures DVT/VTE Risk/Contraindication: Risk Factor Score Per Nursin RFS Level Per Nursing on Admit: 4+=Very High SOHA OLMEDO MD Mar 01, 2019 08:51
[2019-03-01] MEDS: cefTRIAXone 1,000 MG/SWFI 10 ML IV PUSH IV SCH ×2 (08:52)
[2019-03-01] MEDS: ASPIRIN E.C. 81 MG (ECOTRIN) TAB PO SCH (10:15)
[2019-03-01] MEDS: IBUPROFEN 600 MG (MOTRIN) TAB PO PRN (10:15)
[2019-03-01] MEDS: LACTOBACILLUS ACIDOPHILUS (PROBIOTIC) CAPSULE PO SCH ×2 (12:37→17:09)
--- NOTE | 2019-03-01 15:40 | NUR ---
Pt to room 430. Report received from LORAINE Gabriel. Agree with previous assessment.
[2019-03-01] MEDS: SIMVASTATIN 80 MG TAB PO SCH (21:04)
[2019-03-01] MEDS: CATHETER FLUSH 10 ML SYR IV PRN (21:05)
[2019-03-02 00:49] VITALS: BP 149/78
[2019-03-02 04:00] VITALS: BP 115/83
[2019-03-02] MEDS: LACTOBACILLUS ACIDOPHILUS (PROBIOTIC) CAPSULE PO SCH ×3 (05:27→16:38)
[2019-03-02 05:52] LABS: BASOPHILS % (AUTO) 0 % (0-10); EOSINOPHILS # (AUTO) 0.2 10^3/uL (0.0-0.3); EOSINOPHILS % (AUTO) 3 % (0-10); HEMATOCRIT 40 % (40-54); HEMOGLOBIN 13.3 G/DL (13.3-17.7); LYMPHOCYTES # (AUTO) 1.1 X 10^3 (1.0-4.0); LYMPHOCYTES % (AUTO) 15 % (12-44); MEAN CORPUSCULAR HEMOGLOBIN 31 PG (25-34); MEAN CORPUSCULAR HGB CONC 34 G/DL (32-36); MEAN CORPUSCULAR VOLUME 92 FL (80-99); MEAN PLATELET VOLUME 11.2 FL (7.4-10.4); MONOCYTES # (AUTO) 0.7 X 10^3 (0.0-1.0); MONOCYTES % (AUTO) 10 % (0-12); NEUTROPHILS # (AUTO) 5.4 X 10^3 (1.8-7.8); NEUTROPHILS % (AUTO) 72 % (42-75); PLATELET COUNT 208 10^3/uL (130-400); RED CELL DISTRIBUTION WIDTH 13.3 % (10.0-14.5); WHITE BLOOD COUNT 7.5 10^3/uL (4.3-11.0)
[2019-03-02 06:13] LABS: BUN/CREATININE RATIO 12; CALCIUM 9.9 MG/DL (8.5-10.1); CARBON DIOXIDE 23 MMOL/L (21-32); CHLORIDE 109 MMOL/L (98-107); CREATININE SERUM 0.94 MG/DL (0.60-1.30); GFR ESTIMATED > 60; GLUCOSE 103 MG/DL (70-105); POTASSIUM 4.1 MMOL/L (3.6-5.0); SODIUM 142 MMOL/L (135-145)
[2019-03-02 08:00] VITALS: BP 144/83
[2019-03-02] MEDS: cefTRIAXone 1,000 MG/SWFI 10 ML IV PUSH IV SCH ×2 (09:17)
[2019-03-02] MEDS: ASPIRIN E.C. 81 MG (ECOTRIN) TAB PO SCH (09:17)
[2019-03-02] MEDS ORDERED: ASPI-983 PO (09:35)
[2019-03-02] MEDS ORDERED: SIMV80TA21 PO (09:35)
[2019-03-02] MEDS ORDERED: CHLO473M MM (09:35)
[2019-03-02] MEDS ORDERED: CHOL20003 PO (09:35)
[2019-03-02] MEDS ORDERED: VITA400C60 PO (09:35)
[2019-03-02] MEDS ORDERED: FEXO1TAB43 PO (09:35)
--- NOTE | 2019-03-02 09:36 | NUR ---
WENT OVER THE EXT MED HX WITH THE PATIENT AND HE VERIFIED HOW HE TAKES THEM. HE ALSO STATES HE TAKES ASPIRIN, VITAMIN D, AND VITAMIN E DAILY OTC.
[2019-03-02 12:00] VITALS: BP 122/74
--- NOTE | 2019-03-02 12:21 | NUR ---
Initial visit with pt and his significant other, Medical Reception offered active listening and compassionate presence. Both affiliate as Hindu.
--- NOTE | 2019-03-02 14:56 | Progress Note - Hospitalist ---
Progress Note Progress Notes/Assess & Plan Date Seen 03/02/19 Time Seen by Provider: 14:54 Assessment & Plan The patient is a 59-year-old white male who was admitted after he presented to the emergency room with fever and chills. He was found to have pyuria and likely pyelonephritis. He has been afebrile. His white count has fallen from 18,000-7500. UA grew Escherichia coli. I am informed by microbiology this morning that his blood cultures are also growing a gram-negative shelby. Physical exam: He is lively and alert. Lungs are clear to auscultation. CV is regular without murmur. Abdomen is soft. Impression: Sepsis, E coli urinary tract infection/bacteremia. Plan: Continue Rocephin. Expect discharge on oral antibiotics tomorrow. Focused Exam Lactate Level 02/28/19 04:55: Lactic Acid Level 1.77 02/28/19 09:25: Lactic Acid Level 1.04 Time of Focused Exam: 06:40 MAEVE GUSMAN MD Mar 02, 2019 14:56
[2019-03-02 16:40] VITALS: BP 118/83
[2019-03-02] MEDS: CATHETER FLUSH 10 ML SYR IV PRN (19:59)
[2019-03-02] MEDS: SIMVASTATIN 80 MG TAB PO SCH (20:00)
[2019-03-02 20:15] VITALS: BP 135/81
[2019-03-03 00:30] VITALS: BP 129/80
[2019-03-03 04:00] VITALS: BP 119/80
[2019-03-03 06:14] LABS: BASOPHILS % (AUTO) 0 % (0-10); EOSINOPHILS # (AUTO) 0.2 10^3/uL (0.0-0.3); EOSINOPHILS % (AUTO) 2 % (0-10); HEMATOCRIT 42 % (40-54); HEMOGLOBIN 14.1 G/DL (13.3-17.7); LYMPHOCYTES # (AUTO) 1.5 X 10^3 (1.0-4.0); LYMPHOCYTES % (AUTO) 16 % (12-44); MEAN CORPUSCULAR HEMOGLOBIN 30 PG (25-34); MEAN CORPUSCULAR HGB CONC 33 G/DL (32-36); MEAN CORPUSCULAR VOLUME 91 FL (80-99); MONOCYTES # (AUTO) 0.9 X 10^3 (0.0-1.0); MONOCYTES % (AUTO) 9 % (0-12); NEUTROPHILS # (AUTO) 6.7 X 10^3 (1.8-7.8); NEUTROPHILS % (AUTO) 72 % (42-75); PLATELET COUNT 250 10^3/uL (130-400); RED CELL DISTRIBUTION WIDTH 13.1 % (10.0-14.5); WHITE BLOOD COUNT 9.2 10^3/uL (4.3-11.0)
[2019-03-03 06:25] LABS: BUN/CREATININE RATIO 9; CALCIUM 9.6 MG/DL (8.5-10.1); CARBON DIOXIDE 23 MMOL/L (21-32); CHLORIDE 106 MMOL/L (98-107); CREATININE SERUM 0.96 MG/DL (0.60-1.30); GFR ESTIMATED > 60; GLUCOSE 100 MG/DL (70-105); POTASSIUM 3.9 MMOL/L (3.6-5.0); SODIUM 139 MMOL/L (135-145)
[2019-03-03] MEDS: cefTRIAXone 1,000 MG/SWFI 10 ML IV PUSH IV SCH ×2 (07:43)
[2019-03-03] MEDS: ASPIRIN E.C. 81 MG (ECOTRIN) TAB PO SCH (07:43)
[2019-03-03] MEDS: LACTOBACILLUS ACIDOPHILUS (PROBIOTIC) CAPSULE PO SCH (07:43)
[2019-03-03 08:00] VITALS: BP 120/81
[2019-03-03] MEDS ORDERED: CEFD300C3 PO (10:12)
--- NOTE | 2019-03-03 10:14 | Discharge Inst-Simple/Standard ---
Discharge Inst-Standard Discharge Medications New, Converted or Re-Newed RX: Transmitted to Pharmacy Patient Instructions/Follow Up Plan of Care/Instructions/FU: Increase activities as tolerated. Medications as listed on the discharge sequence. Complete all of the antibiotics Activity as Tolerated: Yes Goal: Return to previous status Discharge Diet: No Restrictions Planned Outpatient Orders/Ref. Pneu Vac Indicated: Yes Copy Copies To 1: XIMENA CHRIS MD, RODNEY K MD Mar 03, 2019 10:14
--- NOTE | 2019-03-03 10:22 | Discharge Summary ---
Diagnosis/Chief Complaint Date of Admission Feb 28, 2019 at 06:20 Date of Discharge 03/03/19 Discharge Date: Mar 03, 2019 Admission Diagnosis Severe Sepsis Discharge Diagnosis Pyelonephritis with bacteremia, Escherichia coli (1) Severe sepsis Status: Acute (2) Urinary tract infection Status: Acute (3) Hyperlipidemia Status: Chronic Discharge Summary Discharge Physical Exam Allergies: Coded Allergies: erythromycin base (Unverified Allergy, Mild, 05/08/13) Uncoded Allergies: GENERAL ANESTHETIC AGENT?? (Adverse Reaction, Mild, 05/08/13) PT REPORTS WAS TOLD HE HAD A REACTION A CHILD DURING A T&A. NOT KNOWN WHAT REACTION WAS FROM. WAS TOLD IT WAS A GENERAL ANESTHETIC. Vitals & I&Os Vital Signs Date Time Temp Pulse Resp B/P (MAP) Pulse Ox O2 Delivery O2 Flow Rate FiO2 03/03/19 09:00 93 Room Air 2.00 03/03/19 08:00 97.5 82 18 120/81 (94) General Appearance: No Apparent Distress Hospital Course Was the Problem List Reviewed?: Yes The patient was a 59-year-old white male who presented to the emergency room on 02/28. He had had urinary symptoms for a couple of days prior to presentation. On the date of admission he had gone to bed and awakened with chills, rigors, sweats and decided to come to the emergency room. He was found to have a white blood count of 18,000+ pyuria with WBCs too numerous to count. He was placed on empiric treatment with Rocephin. Cultures returned positive for Escherichia coli both of the urine and blood. He has fully recovered at this time and will be discharged to complete a 10 day course of antibiotics at home. FOR medications and routines see the discharge sequence Labs (last 24 hrs) Laboratory Tests 03/03/19 05:33: White Blood Count 9.2, Red Blood Count 4.65, Hemoglobin 14.1, Hematocrit 42, Mean Corpuscular Volume 91, Mean Corpuscular Hemoglobin 30, Mean Corpuscular Hemoglobin Concent 33, Red Cell Distribution Width 13.1, Platelet Count 250, Mean Platelet Volume 11.0H, Neutrophils (%) (Auto) 72, Lymphocytes (%) (Auto) 16, Monocytes (%) (Auto) 9, Eosinophils (%) (Auto) 2, Basophils (%) (Auto) 0, Neutrophils # (Auto) 6.7, Lymphocytes # (Auto) 1.5, Monocytes # (Auto) 0.9, Eosinophils # (Auto) 0.2, Basophils # (Auto) 0.0, Sodium Level 139, Potassium Level 3.9, Chloride Level 106, Carbon Dioxide Level 23, Anion Gap 10, Blood Urea Nitrogen 9, Creatinine 0.96, Estimat Glomerular Filtration Rate > 60, BUN/Creat inine Ratio 9, Glucose Level 100, Calcium Level 9.6 Microbiology 02/28/19 Blood Culture - Preliminary, Resulted Positive; See Report 02/28/19 Urine Culture - Final, Complete Escherichia coli Patient resulted labs reviewed. Pending Labs Laboratory Tests 03/03/19 05:33: White Blood Count 9.2, Red Blood Count 4.65, Hemoglobin 14.1, Hematocrit 42, Mean Corpuscular Volume 91, Mean Corpuscular Hemoglobin 30, Mean Corpuscular Hemoglobin Concent 33, Red Cell Distribution Width 13.1, Platelet Count 250, Mean Platelet Volume 11.0, Neutrophils (%) (Auto) 72, Lymphocytes (%) (Auto) 16, Monocytes (%) (Auto) 9, Eosinophils (%) (Auto) 2, Basophils (%) (Auto) 0, Neutrophils # (Auto) 6.7, Lymphocytes # (Auto) 1.5, Monocytes # (Auto) 0.9, Eosinophils # (Auto) 0.2, Basophils # (Auto) 0.0, Sodium Level 139, Potassium Level 3.9, Chloride Level 106, Carbon Dioxide Level 23, Anion Gap 10, Blood Urea Nitrogen 9, Creatinine 0.96, Estimat Glomerular Filtration Rate > 60, BUN/Creatinine Ratio 9, Glucose Level 100, Calcium Level 9.6 Imaging: Reviewed Imaging Report Discussion & Recommendations Discharge Planning: <30 minutes discharge planning Discharge Home Medications: Active Scripts Active Cefdinir 300 Mg Capsule 300 Mg PO TWICE A DAY Began a.m. 03/04 Reported Vitamin E (Vitamin E Acetate) 400 Unit Capsule 400 Unit PO DAILY Vitamin D3 (Cholecalciferol (Vitamin D3)) 2,000 Unit Capsule 2,000 Unit PO DAILY Aspirin EC (Aspirin) 81 Mg Tablet.dr 81 Mg PO DAILY Chlorhexidine Gluconate 473 Ml Mouthwash MM MOWEFR Blanka-D 24 Hour Tablet (Fexofenadine/Pseudoephedrine) 1 Each Tab.er.24h 1 Tab PO DAILY Simvastatin 80 Mg Tablet 80 Mg PO HS Instructions to patient/family Please see electronic discharge instructions given to patient. Clinical Quality Measures DVT/VTE Risk/Contraindication: Risk Factor Score Per Nursin RFS Level Per Nursing on Admit: 4+=Very High Problem Qualifiers (1) Urinary tract infection: Urinary tract infection type: site unspecified Hematuria presence: with hematuria Qualified Codes: N39.0 - Urinary tract infection, site not specified; R31.9 - Hematuria, unspecified (2) Hyperlipidemia: Hyperlipidemia type: unspecified Qualified Codes: E78.5 - Hyperlipidemia, unspecified MAEVE GUSMAN MD Mar 03, 2019 10:22
[2019-03-03 11:19] VITALS: BP 120/81
== END 2019-03-03 11:40 | disposition home or self-care (01) | DRG 872 ==
LOC: EDUNIT# 04:38 → ER 04:41 → ICU 06:20 → 4TH 03-01 15:37
PROVIDERS: ADMIT Family Medicine; ATTEND Family Medicine
DX: A41.51 Sepsis due to Escherichia coli [E. coli] (principal); N12 Tubulo-interstitial nephritis, not specified as acute or chronic; E78.5 Hyperlipidemia, unspecified; K21.9 Gastro-esophageal reflux disease without esophagitis
CPT/HCPCS: 36415; 71045; 80048; 80053; 81000; 83605; 83735; 84100; 85007; 85025; 85027; 85610; 85730; 87040; 87077; 87088; 87186; 96361; 96365